=== PATIENT | female | born 1995 | race Caucasian/White ===

== ENCOUNTER 2017-01-27 14:19 | Emergency (ER) | payer OTHER ==
[~2017-01-27] VITALS: Ht 165.1 cm; Wt 68.0 kg
[2017-01-27] MEDS ORDERED: ZOLO50TA PO (14:50)
[2017-01-27] MEDS ORDERED: NS 1,000 ML IV ONE ×3 (15:30→20:45)
[2017-01-27] MEDS ORDERED: ONDANSETRON 4MG/2ML VIAL (J2405) IV ONE (15:30)
[2017-01-27 16:13] LABS: MEAN CORPUSCULAR HGB CONC 35.5 g/dl (32.0-36.5); MEAN CORPUSCULAR VOLUME 90.1 fl (80.0-96.0); PLATELET COUNT, AUTOMATED 206 k/mm3 (150-450); RED CELL DISTRIBUTION WIDTH 13.4 % (11.5-14.5); WHITE BLOOD COUNT 16.8 K/mm3 (4.0-10.0)
[2017-01-27 16:19] LABS: ANION GAP 9 MEQ/L (8-16); BLOOD UREA NITROGEN 8 MG/DL (7-18); CALCIUM LEVEL 8.5 MG/DL (8.5-10.1); CARBON DIOXIDE LEVEL 26 MEQ/L (21-32); CHLORIDE LEVEL 103 MEQ/L (98-107); CREATININE FOR GFR 0.47 MG/DL (0.55-1.02); GLOMERULAR FILTRATION RATE > 60.0 (>60); GLUCOSE, FASTING 92 MG/DL (70-105); POTASSIUM SERUM 3.8 MEQ/L (3.5-5.1); SODIUM LEVEL 138 MEQ/L (136-145)
[2017-01-27 17:08] LABS: BANDS 2 % (< 11); EOSINOPHILS 1 % (0-5)
[2017-01-27] MEDS ORDERED: diphenhydrAMINE INJ 50MG/ML VIAL (J1200) IV ONE (20:15)
[2017-01-27] MEDS ORDERED: METOCLOPRAMIDE INJ 10MG/2ML VIAL (J2765) IV ONE (20:15)
[2017-01-27] MEDS ORDERED: ZOFR4TAB3 PO (22:12)
[2017-01-27 22:49] VITALS: BP 110/67
== END 2017-01-27 22:52 | disposition home or self-care (01) ==
LOC: M ED 16:38
DX: A08.4 Viral intestinal infection, unspecified (principal); F32.9 Major depressive disorder, single episode, unspecified; Z79.899 Other long term (current) drug therapy
CPT/HCPCS: 80048; 85025; 93041; 96361; 96374; 96375; 99285; J1200; J2405; J2765

== ENCOUNTER 2017-06-13 19:16 | Outpatient (CLI) | payer OTHER ==
[~2017-06-13] VITALS: Ht 165.1 cm; Wt 81.0 kg
[~2017-06-13 19:16] MED LIST: ZOFR4TAB3 PO; ZOLO50TA PO
[2017-06-13 19:29] VITALS: BP 135/64
== END 2017-06-13 20:20 | disposition home or self-care (01) ==
LOC: M LDO 19:16
PROVIDERS: ATTEND Student in an Organized Health Care Education/Training Program
DX: O26.893 Other specified pregnancy related conditions, third trimester (principal); Z3A.37 37 weeks gestation of pregnancy; N89.9 Noninflammatory disorder of vagina, unspecified

== ENCOUNTER 2017-06-30 09:19 | Inpatient (IN) | payer OTHER ==
[~2017-06-30] VITALS: Ht 165.1 cm; Wt 85.0 kg
[2017-06-30] VITALS (33 sets, daily range): BP systolic 121–151; BP diastolic 60–99
[2017-06-30] MEDS ORDERED: miSOPROStol 50 MCG 1/2 TAB (S0191) PO SCH (12:00)
[2017-06-30 12:42] LABS: MEAN CORPUSCULAR HEMOGLOBIN 28.7 pg (27.0-33.0); MEAN CORPUSCULAR HGB CONC 34.5 g/dl (32.0-36.5); MEAN CORPUSCULAR VOLUME 83.2 fl (80.0-96.0); RED CELL DISTRIBUTION WIDTH 16.3 % (11.5-14.5); WHITE BLOOD COUNT 8.5 K/mm3 (4.0-10.0)
[2017-06-30] MEDS ORDERED: OXYTOCIN DRIP 30 UNITS in APPROPRIATE DILUENT 1 EA IV SCH (16:00)
[2017-06-30] MEDS ORDERED: LR 1,000 ML IV SCH (16:00)
[2017-06-30] MEDS ORDERED: FENTANYL 2MCG/ML ROPIVACAINE 0.2% IN 0.9% NACL 200ML IVBAG As Ordered ONE (16:33)
[2017-06-30] MEDS ORDERED: diphenhydrAMINE INJ 50MG/ML VIAL (J1200) IV PRN (18:00)
[2017-06-30] MEDS ORDERED: ONDANSETRON 4MG/2ML VIAL (J2405) IV PRN (18:00)
[2017-06-30] MEDS ORDERED: ePHEDrine SULFATE 25 MG/5 ML(5MG/ML) SYRINGE IV PRN (18:00)
[2017-06-30] MEDS ORDERED: EPIDURAL/PCA KEYS XX PRN (18:00)
[2017-06-30] MEDS ORDERED: FENTANYL/ROPIVACAINE/NACL BAG 200 ML EPIDURAL SCH (18:00)
[2017-06-30] MEDS ORDERED: NALOXONE INJ 0.4 MG/1 ML VIAL (J2310) IV PRN (18:00)
[2017-06-30] MEDS ORDERED: LACTATED RINGER'S 1000 ML IV PRN (18:00)
[2017-06-30] MEDS ORDERED: REFRIGERATOR IV KEYS XX PRN (18:00)
[2017-06-30] MEDS ORDERED: EPIDURAL COMMENT XX SCH (18:00)
[2017-07-01] VITALS (46 sets, daily range): BP systolic 74–179; BP diastolic 39–93
[2017-07-01] MEDS ORDERED: OXYTOCIN DRIP 30 UNITS in APPROPRIATE DILUENT 1 EA IV SCH ×2 (00:25→02:41)
[2017-07-01] MEDS ORDERED: RHOGAM 300 MCG (1500 IU) INJ (J2790) IM SCH ×2 (00:30→10:00)
[2017-07-01] MEDS ORDERED: DIBUCAINE 1% OINTMENT 30GM TOP PRN ×2 (00:30→10:00)
[2017-07-01] MEDS ORDERED: PROMETHAZINE 25 MG TAB PO PRN ×2 (00:30→10:00)
[2017-07-01] MEDS ORDERED: IBUPROFEN 800 MG TAB PO PRN (00:30)
[2017-07-01] MEDS ORDERED: MEASLES,MUMPS,RUBELLA VACCINE INJ (MMR-II) (90707) SC SCH ×2 (00:30→10:00)
[2017-07-01] MEDS ORDERED: ACETAMINOPHEN 500 MG TAB PO PRN (00:30)
[2017-07-01] MEDS ORDERED: ONDANSETRON 4MG/2ML VIAL (J2405) IV PRN ×4 (00:30→10:00)
[2017-07-01] MEDS ORDERED: BUTORPHANOL 2 MG/ML INJ (J0595) As Ordered ONE (01:24)
[2017-07-01] MEDS ORDERED: BUTORPHANOL 2 MG/ML INJ (J0595) IV ONE (01:45)
[2017-07-01 02:27] LABS: INR 1.14
[2017-07-01 02:29] LABS: MEAN CORPUSCULAR HEMOGLOBIN 28.5 pg (27.0-33.0); MEAN CORPUSCULAR HGB CONC 33.7 g/dl (32.0-36.5); MEAN CORPUSCULAR VOLUME 84.5 fl (80.0-96.0); RED CELL DISTRIBUTION WIDTH 16.4 % (11.5-14.5); WHITE BLOOD COUNT 21.5 K/mm3 (4.0-10.0)
[2017-07-01] MEDS ORDERED: miSOPROStol 200 MCG TAB (S0191) PR ONE (02:45)
[2017-07-01] MEDS ORDERED: CARBOPROST TROMETHAMINE 250 MCG/ML AMP IM ONE (02:45)
[2017-07-01] MEDS ORDERED: METHYLERGONOVINE MALEATE 0.2 MG/ML VIAL (J2210) As Ordered ONE (03:50)
[2017-07-01] MEDS ORDERED: METHYLERGONOVINE MALEATE 0.2 MG/ML VIAL (J2210) IM ONE (04:00)
[2017-07-01] MEDS ORDERED: MIDAZOLAM INJ 2 MG/2 ML VIAL (J2250) As Ordered ONE (05:49)
[2017-07-01] MEDS ORDERED: fentaNYL 100 MCG/2 ML INJECTION (J3010) As Ordered ONE (05:50)
[2017-07-01] MEDS ORDERED: ceFAZolin 1GM INJ (J0690) As Ordered ONE (06:17)
[2017-07-01] MEDS ORDERED: ONDANSETRON 4MG/2ML VIAL (J2405) As Ordered ONE (06:30)
[2017-07-01] MEDS ORDERED: SUCCINYLCHOLINE 100 MG/5 ML SYRINGE (J0330) As Ordered ONE (06:30)
[2017-07-01] MEDS ORDERED: ETOMIDATE INJ 20MG/10ML VIAL As Ordered ONE (06:30)
[2017-07-01] MEDS ORDERED: PHENYLephrine HCL 500 MCG/5 ML (100MCG/ML) SYRINGE (J2370) As Ordered ONE (06:30)
[2017-07-01] MEDS ORDERED: PROPOFOL 200 MG/20 ML VIAL As Ordered ONE (06:30)
[2017-07-01] MEDS ORDERED: ESTROGENS VAGINAL CREAM 30GM As Ordered ONE (06:43)
[2017-07-01] MEDS ORDERED: METOCLOPRAMIDE INJ 10MG/2ML VIAL (J2765) IV PRN ×2 (07:30→08:45)
[2017-07-01] MEDS ORDERED: HYDROmorphone HCL 1 MG/ML SYRINGE (J1170) IV PRN (07:30)
[2017-07-01] MEDS ORDERED: fentaNYL 100 MCG/2 ML INJECTION (J3010) IV PRN ×2 (07:30→08:45)
[2017-07-01] MEDS ORDERED: PERCOCET 5MG/325MG TAB PO PRN ×4 (07:30→08:45)
[2017-07-01] MEDS ORDERED: LR 1,000 ML IV SCH ×2 (07:30→08:45)
[2017-07-01] MEDS ORDERED: HYDROmorphone HCL 1 MG/ML SYRINGE (J1170) As Ordered ONE (07:53)
[2017-07-01] MEDS: HYDROmorphone HCL 1 MG/ML SYRINGE (J1170) IV PRN ×3 (07:55→08:20)
[2017-07-01 08:00] LABS: BASO % 0.2 % (0.0-1.0); EOS % 0.2 % (0.0-3.0); LARGE UNSTAINED CELL # 0.1 K/mm3 (0.0-0.4); LARGE UNSTAINED CELL % 0.5 % (0.0-4.0); LYMPH # 1.3 K/mm3 (1.5-6.5); LYMPH % 6.1 % (24.0-44.0); MEAN CORPUSCULAR HEMOGLOBIN 29.8 pg (27.0-33.0); MEAN CORPUSCULAR HGB CONC 32.1 g/dl (32.0-36.5); MONO # 0.9 K/mm3 (0.0-0.8); MONO % 4.7 % (0.0-5.0); NEUTROPHILS # 17.6 K/mm3 (1.8-7.7); NEUTROPHILS % 88.3 % (36.0-66.0); PLATELET COUNT, AUTOMATED 125 k/mm3 (150-450); RED CELL DISTRIBUTION WIDTH 17.7 % (11.5-14.5)
[2017-07-01 08:03] LABS: MEAN CORPUSCULAR VOLUME 92.7 fl (80.0-96.0)
[2017-07-01 08:04] LABS: INR 1.19
[2017-07-01] MEDS ORDERED: OXYTOCIN 30 UNITS IN 0.9% NaCl 500ML IV BAG (J2590) As Ordered ONE (08:50)
[2017-07-01] MEDS ORDERED: PRENATAL VITAMINS CHEWABLE TABLET PO SCH (09:00)
[2017-07-01] MEDS ORDERED: DOCUSATE SODIUM 100 MG CAP PO SCH (09:00)
[2017-07-01] MEDS: LR 1,000 ML IV SCH ×3 (10:00→17:01)
[2017-07-01] MEDS: PRENATAL VITAMINS CHEWABLE TABLET PO SCH (10:38)
[2017-07-01] MEDS: DOCUSATE SODIUM 100 MG CAP PO SCH ×2 (10:39→21:43)
[2017-07-01] MEDS: IBUPROFEN 800 MG TAB PO PRN ×2 (12:20→21:44)
[2017-07-01] MEDS ORDERED: LR 1,000 ML IV ONE ×3 (13:00→16:45)
[2017-07-01 18:01] LABS: MEAN CORPUSCULAR HEMOGLOBIN 30.2 pg (27.0-33.0); MEAN CORPUSCULAR HGB CONC 33.9 g/dl (32.0-36.5); MEAN CORPUSCULAR VOLUME 88.9 fl (80.0-96.0); WHITE BLOOD COUNT 22.2 K/mm3 (4.0-10.0)
[2017-07-02] VITALS (11 sets, daily range): BP systolic 115–143; BP diastolic 56–89
[2017-07-02] MEDS: IBUPROFEN 800 MG TAB PO PRN ×2 (05:40→16:09)
[2017-07-02 06:57] LABS: MEAN CORPUSCULAR HEMOGLOBIN 30.4 pg (27.0-33.0); MEAN CORPUSCULAR HGB CONC 34.1 g/dl (32.0-36.5); MEAN CORPUSCULAR VOLUME 89.1 fl (80.0-96.0); RED CELL DISTRIBUTION WIDTH 16.2 % (11.5-14.5); WHITE BLOOD COUNT 13.6 K/mm3 (4.0-10.0)
[2017-07-02] MEDS ORDERED: MORPHINE 2 MG/ML 1ML SYRINGE IV ONE (07:00)
[2017-07-02 08:31] LABS: MEAN CORPUSCULAR HEMOGLOBIN 30.3 pg (27.0-33.0); MEAN CORPUSCULAR HGB CONC 34.1 g/dl (32.0-36.5); MEAN CORPUSCULAR VOLUME 88.7 fl (80.0-96.0); RED CELL DISTRIBUTION WIDTH 16.1 % (11.5-14.5); WHITE BLOOD COUNT 14.1 K/mm3 (4.0-10.0)
[2017-07-02 08:53] LABS: ALBUMIN 1.6 GM/DL (3.2-5.2); ALKALINE PHOSPHATASE 132 U/L (45-117); ALT/SGPT 19 U/L (12-78); ANION GAP 8 MEQ/L (8-16); AST/SGOT 46 U/L (15-37); BILIRUBIN,TOTAL 0.2 MG/DL (0.2-1.0); BLOOD UREA NITROGEN 10 MG/DL (7-18); CALCIUM LEVEL 7.3 MG/DL (8.5-10.1); CARBON DIOXIDE LEVEL 23 MEQ/L (21-32); CHLORIDE LEVEL 113 MEQ/L (98-107); CREATININE FOR GFR 0.82 MG/DL (0.55-1.02); GLOMERULAR FILTRATION RATE > 60.0 (>60); GLUCOSE, FASTING 90 MG/DL (70-105); POTASSIUM SERUM 4.3 MEQ/L (3.5-5.1); SODIUM LEVEL 144 MEQ/L (136-145); TOTAL PROTEIN 3.6 GM/DL (6.4-8.2)
[2017-07-02] MEDS: ACETAMINOPHEN 500 MG TAB PO PRN ×2 (11:27→20:45)
[2017-07-02] MEDS: PRENATAL VITAMINS CHEWABLE TABLET PO SCH (11:27)
[2017-07-02] MEDS: DOCUSATE SODIUM 100 MG CAP PO SCH ×2 (11:27→20:46)
[2017-07-02 15:13] LABS: MEAN CORPUSCULAR HEMOGLOBIN 30.6 pg (27.0-33.0); MEAN CORPUSCULAR HGB CONC 34.4 g/dl (32.0-36.5); MEAN CORPUSCULAR VOLUME 88.9 fl (80.0-96.0); WHITE BLOOD COUNT 13.5 K/mm3 (4.0-10.0)
--- NOTE | 2017-07-02 19:09 | IPN ---
DATE: 07/02/2017 This lady has requested circumcision of their male . After discussing risks and benefits of circumcision, medical and nonmedical indications, the penile block and the aftercare, expressed understanding, answered all questions that her had regarding circumcision, signed and witnessed the consent form. We await the clearance by the safety scientist.
[2017-07-02] MEDS ORDERED: SIMETHICONE 80 MG CHEW TAB PO PRN (22:15)
[2017-07-02] MEDS: SIMETHICONE 80 MG CHEW TAB PO PRN (22:48)
[2017-07-03 02:10] VITALS: BP 128/69
[2017-07-03] MEDS: IBUPROFEN 800 MG TAB PO PRN (05:33)
[2017-07-03 06:15] VITALS: BP 136/89
[2017-07-03 07:25] LABS: BASO % 0.3 % (0.0-1.0); EOS # 0.1 K/mm3 (0.0-0.50); EOS % 0.6 % (0.0-3.0); LARGE UNSTAINED CELL # 0.1 K/mm3 (0.0-0.4); LARGE UNSTAINED CELL % 0.8 % (0.0-4.0); LYMPH % 14.8 % (24.0-44.0); MEAN CORPUSCULAR HEMOGLOBIN 30.1 pg (27.0-33.0); MEAN CORPUSCULAR HGB CONC 33.9 g/dl (32.0-36.5); MEAN CORPUSCULAR VOLUME 88.8 fl (80.0-96.0); MONO # 0.5 K/mm3 (0.0-0.8); MONO % 4.2 % (0.0-5.0); NEUTROPHILS # 9.9 K/mm3 (1.8-7.7); NEUTROPHILS % 79.2 % (36.0-66.0); PLATELET COUNT, AUTOMATED 144 k/mm3 (150-450); RED CELL DISTRIBUTION WIDTH 16.3 % (11.5-14.5); WHITE BLOOD COUNT 12.5 K/mm3 (4.0-10.0)
[2017-07-03 07:46] LABS: ALBUMIN 1.9 GM/DL (3.2-5.2); ALBUMIN/GLOBULIN RATIO 0.79 (1.00-1.93); ALKALINE PHOSPHATASE 137 U/L (45-117); ALT/SGPT 23 U/L (12-78); ANION GAP 10 MEQ/L (8-16); AST/SGOT 49 U/L (15-37); BILIRUBIN,TOTAL 0.2 MG/DL (0.2-1.0); BLOOD UREA NITROGEN 9 MG/DL (7-18); CALCIUM LEVEL 7.5 MG/DL (8.5-10.1); CARBON DIOXIDE LEVEL 25 MEQ/L (21-32); CHLORIDE LEVEL 110 MEQ/L (98-107); GLOMERULAR FILTRATION RATE > 60.0 (>60); GLUCOSE, FASTING 70 MG/DL (70-105); POTASSIUM SERUM 4.2 MEQ/L (3.5-5.1); SODIUM LEVEL 145 MEQ/L (136-145); TOTAL PROTEIN 4.3 GM/DL (6.4-8.2)
[2017-07-03] MEDS: PRENATAL VITAMINS CHEWABLE TABLET PO SCH (09:00)
[2017-07-03] MEDS: DOCUSATE SODIUM 100 MG CAP PO SCH (09:59)
[2017-07-03 10:50] VITALS: BP 141/95
[2017-07-03 11:15] VITALS: BP 145/86
[2017-07-03] MEDS ORDERED: COLA100C5 PO (13:09)
[2017-07-03] MEDS ORDERED: MOTR200T44 PO (13:09)
[2017-07-03] MEDS ORDERED: ACET50TA PO (13:09)
[2017-07-03] MEDS: SIMETHICONE 80 MG CHEW TAB PO PRN (13:37)
== END 2017-07-03 14:30 | disposition home or self-care (01) | DRG 767 ==
LOC: M LDO 09:19 → M LDI 11:46 → M OBS 07-02 16:25
PROVIDERS: ADMIT Obstetrics & Gynecology; ATTEND Obstetrics & Gynecology
PROC: 3E0DXGC Introduction of Other Therapeutic Substance into Mouth and Pharynx, External Approach (ICD-10-PCS; 2017-06-30)
PROC: 0KQM0ZZ Repair Perineum Muscle, Open Approach (ICD-10-PCS; 2017-07-01)
PROC: 10E0XZZ Delivery of Products of Conception, External Approach (ICD-10-PCS; 2017-07-01)
PROC: 30233N1 Transfusion of Nonautologous Red Blood Cells into Peripheral Vein, Percutaneous Approach (ICD-10-PCS; 2017-07-01)
PROC: 10D17ZZ Extraction of Products of Conception, Retained, Via Natural or Artificial Opening (ICD-10-PCS; principal; 2017-07-01 05:49)
PROC: 30233S1 Transfusion of Nonautologous Globulin into Peripheral Vein, Percutaneous Approach (ICD-10-PCS; 2017-07-02)
DX: O13.4 Gestational [pregnancy-induced] hypertension without significant proteinuria, complicating childbirth (principal); O72.1 Other immediate postpartum hemorrhage; Z37.0 Single live birth; Z3A.39 39 weeks gestation of pregnancy; F32.9 Major depressive disorder, single episode, unspecified; D64.9 Anemia, unspecified; O70.1 Second degree perineal laceration during delivery; O99.02 Anemia complicating childbirth; O99.344 Other mental disorders complicating childbirth

== ENCOUNTER 2017-07-04 17:52 | Emergency (ER) | payer OTHER ==
[~2017-07-04] VITALS: Ht 165.1 cm; Wt 92.3 kg
[~2017-07-04 17:52] MED LIST changes: +ACET50TA PO; +COLA100C5 PO; +MOTR200T44 PO
[2017-07-04 18:45] LABS: BASO % 0.3 % (0.0-1.0); EOS # 0.2 K/mm3 (0.0-0.50); EOS % 1.9 % (0.0-3.0); LARGE UNSTAINED CELL # 0.1 K/mm3 (0.0-0.4); LARGE UNSTAINED CELL % 1.3 % (0.0-4.0); LYMPH % 21.3 % (24.0-44.0); MEAN CORPUSCULAR HEMOGLOBIN 30.5 pg (27.0-33.0); MEAN CORPUSCULAR HGB CONC 35.2 g/dl (32.0-36.5); MEAN CORPUSCULAR VOLUME 86.7 fl (80.0-96.0); MONO # 0.6 K/mm3 (0.0-0.8); MONO % 7.2 % (0.0-5.0); NEUTROPHILS # 5.9 K/mm3 (1.8-7.7); NEUTROPHILS % 68.1 % (36.0-66.0); PLATELET COUNT, AUTOMATED 232 k/mm3 (150-450); RED CELL DISTRIBUTION WIDTH 16.4 % (11.5-14.5); WHITE BLOOD COUNT 8.7 K/mm3 (4.0-10.0)
[2017-07-04 19:14] LABS: ALBUMIN 2.2 GM/DL (3.2-5.2); ALBUMIN/GLOBULIN RATIO 0.73 (1.00-1.93); ALKALINE PHOSPHATASE 136 U/L (45-117); ALT/SGPT 43 U/L (12-78); ANION GAP 9 MEQ/L (8-16); AST/SGOT 71 U/L (15-37); BILIRUBIN,DIRECT < 0.1 MG/DL (0.0-0.2); BILIRUBIN,TOTAL 0.2 MG/DL (0.2-1.0); BLOOD UREA NITROGEN 6 MG/DL (7-18); CALCIUM LEVEL 7.8 MG/DL (8.5-10.1); CARBON DIOXIDE LEVEL 26 MEQ/L (21-32); CHLORIDE LEVEL 110 MEQ/L (98-107); CREATININE FOR GFR 0.56 MG/DL (0.55-1.02); GLOMERULAR FILTRATION RATE > 60.0 (>60); GLUCOSE, FASTING 100 MG/DL (70-105); SODIUM LEVEL 145 MEQ/L (136-145); TOTAL PROTEIN 5.2 GM/DL (6.4-8.2)
[2017-07-04] MEDS ORDERED: PERCOCET 5MG/325MG TAB PO ONE (19:30)
[2017-07-04] MEDS ORDERED: LIDOCAINE 1% MDV 20ML VIAL As Ordered ONE (19:51)
[2017-07-04 20:57] VITALS: BP 132/82
== END 2017-07-04 20:59 | disposition home or self-care (01) ==
LOC: M ED 17:52
DX: O90.1 Disruption of perineal obstetric wound (principal)